=== PATIENT | male | born 2000 | race Two or more races ===

== ENCOUNTER 2019-07-25 10:41 | Emergency (ER) | payer MEDICAID, OTHER ==
[~2019-07-25] VITALS: Ht 154.9 cm; Wt 54.5 kg
[2019-07-25] MEDS ORDERED: HYDROcodone/acetaminophen 10/325mg tab PO STA (10:52)
[2019-07-25] MEDS ORDERED: gentamicin in saline, iso-osm 80 MG/50 ML premix IV ONE (11:10)
[2019-07-25] MEDS ORDERED: LIDOcaine 1% 30ml preserv. free vial IJ ONE (11:10)
[2019-07-25] MEDS ORDERED: TETanus/Pertussis (Acell)/Diphther VAC/PF (Tdap-Adult) 0.5ml syringe IMVAC ONE (11:10)
[2019-07-25] MEDS ORDERED: ceFAZolin 1000mg inj IV ONE (11:10)
[2019-07-25] MEDS ORDERED: cefazolin/dext.iso 2gm/50ml 50 ML IV ONE (11:20)
--- NOTE | 2019-07-25 11:25 | NUR ---
CALL TO PHARMACY AT THIS TIME FOR GENTAMYCIN (SEE EMAR) AND ANCEF (SEE EMAR). PHARMACY TO PREPARE.
[2019-07-25] MEDS ORDERED: GENTAMICIN IV ONE (11:45)
[2019-07-25] MEDS ORDERED: NORMAL SALINE IV ONE (11:45)
--- NOTE | 2019-07-25 13:09 | NUR ---
DR BORJAS MADE AWARE OF MANUAL BP CUFF PLACED ON LEFT FOREARM TO STOP ACTIVE BLEEDING. PATIENT DENIES ANY PAIN AT THIS TIME, BLEEDING CONTROLLED, NO NEW ORDERS AT THIS TIME.
[2019-07-25] MEDS ORDERED: bacitracin 15gm ointment TP ONE (13:35)
[2019-07-25] MEDS ORDERED: ONDA4TAB6 PO (13:51)
[2019-07-25] MEDS ORDERED: HYDR-4353 PO (13:51)
[2019-07-25] MEDS ORDERED: CEPH-572 PO (13:51)
[2019-07-25 14:41] VITALS: BP 134/72
== END 2019-07-25 14:43 | disposition home or self-care (01) ==
LOC: ER 10:42
DX: S61.217A Laceration without foreign body of left little finger without damage to nail, initial encounter (principal); S61.215A Laceration without foreign body of left ring finger without damage to nail, initial encounter; S61.213A Laceration without foreign body of left middle finger without damage to nail, initial encounter; S61.012A Laceration without foreign body of left thumb without damage to nail, initial encounter; W31.2XXA Contact with powered woodworking and forming machines, initial encounter; Y93.89 Activity, other specified; Y92.89 Other specified places as the place of occurrence of the external cause; Y99.9 Unspecified external cause status
CPT/HCPCS: 12005; 73130; 90471; 90715; 96365; 96367; 99284; J1580; J2001; 99285; J0690

== ENCOUNTER 2019-07-27 10:54 | Emergency (ER) | payer MEDICAID, OTHER ==
[~2019-07-27] VITALS: Ht 167.6 cm; Wt 56.9 kg
[~2019-07-27 10:54] MED LIST: CEPH-572 PO; HYDR-4353 PO; ONDA4TAB6 PO
[2019-07-27] MEDS ORDERED: HYDROcodone/acetaminophen 5mg/325mg tablet PO ONE (12:00)
--- NOTE | 2019-07-27 12:25 | NUR ---
WAITING ORTHO SURGEON TO CALL BACK/EVAL.
[2019-07-27 15:37] VITALS: BP 133/64
== END 2019-07-27 15:40 | disposition home or self-care (01) ==
LOC: ER 10:55
DX: S61.217D Laceration without foreign body of left little finger without damage to nail, subsequent encounter (principal); S61.215D Laceration without foreign body of left ring finger without damage to nail, subsequent encounter; S61.213D Laceration without foreign body of left middle finger without damage to nail, subsequent encounter; S61.012D Laceration without foreign body of left thumb without damage to nail, subsequent encounter; W31.2XXD Contact with powered woodworking and forming machines, subsequent encounter
CPT/HCPCS: 29125; 99285

== ENCOUNTER 2019-07-31 14:19 | Emergency (ER) | payer MEDICAID, OTHER ==
[~2019-07-31] VITALS: Ht 172.7 cm; Wt 58.5 kg
[2019-07-31 16:06] VITALS: BP 118/65
== END 2019-07-31 16:06 | disposition home or self-care (01) ==
LOC: ER 14:20
DX: S61.217D Laceration without foreign body of left little finger without damage to nail, subsequent encounter (principal); S61.215D Laceration without foreign body of left ring finger without damage to nail, subsequent encounter; S61.213D Laceration without foreign body of left middle finger without damage to nail, subsequent encounter; S61.012D Laceration without foreign body of left thumb without damage to nail, subsequent encounter; Z79.899 Other long term (current) drug therapy; W31.0XXD Contact with mining and earth-drilling machinery, subsequent encounter
CPT/HCPCS: 99283